=== PATIENT | female | born 1970 | race Caucasian/White ===

== ENCOUNTER 2017-01-01 06:32 | Emergency (ER) | payer MEDICAID ==
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
== END 2017-01-01 07:22 | disposition home or self-care (01) ==
LOC: ER 06:32
DX: L03.114 Cellulitis of left upper limb (principal); T22.1 Burn of first degree of shoulder and upper limb, except wrist and hand; X19.XXXS Contact with other heat and hot substances, sequela; Y92.414 Local residential or business street as the place of occurrence of the external cause; Y99.0 Civilian activity done for income or pay
CPT/HCPCS: 99282